=== PATIENT | female | born 2000 | race Caucasian/White ===

== ENCOUNTER 2025-10-21 10:51 | Emergency (ER) | payer SELFPAY ==
[~2025-10-21] VITALS: Ht 167.6 cm; Wt 68.2 kg
[2025-10-21 11:17] LABS: PLATELET COUNT (AUTO) 260 K/uL (150-450); RED BLOOD CELL COUNT(AUTO) 4.71 MIL/uL (4.00-5.20); RED CELL DISTRIBUTION WIDTH 13.2 % (11.5-14.5); WHITE BLOOD COUNT (AUTO) 8.8 K/uL (4.5-11.0)
[2025-10-21 11:23] LABS: CALCIUM, TOTAL 9.7 mg/dL (8.8-10.5); CREATININE 0.55 mg/dL (0.60-1.30); GLOMERULAR FILTR. RATE CALC > 60 mL/min (>60); GLUCOSE,RANDOM 91 mg/dL (70-110); SODIUM SERUM 142 mmol/L (136-145); UREA NITROGEN, BLOOD 8 mg/dL (7-18)
[2025-10-21 11:37] LABS: ALCOHOL, BLOOD (SERUM) < 3 mg/dL (0-10)
[2025-10-21 11:44] LABS: ASPARTATE AMINOTRANSFERASE 19 U/L (15-37); HCG,QUANTITATIVE < 1 mIU/mL (0-6); TOTAL PROTEIN, SERUM 8.3 g/dL (6.4-8.2)
[2025-10-21 11:52] LABS: APPEARANCE,URINE CLEAR (CLEAR); GLUCOSE, URINE (UA) NEGATIVE (NEGATIVE); LEUKOCYTE ESTERASE ,URINE NEGATIVE (NEGATIVE); NITRATE,URINE NEGATIVE (NEGATIVE); OCCULT BLOOD,URINE NEGATIVE (NEGATIVE); PH,URINE DRUG SCREEN 7.5 (5.0-8.0); SPECIFIC GRAVITIY, URINE 1.022 (1.003-1.030)
[2025-10-21 12:03] LABS: ALCOHOL, URINE DRUG SCREEN NEGATIVE (NEGATIVE); AMPHET/METH SCREEN,URINE NEGATIVE (NEGATIVE); BARBITURATE SCREEN, URINE NEGATIVE (NEGATIVE); CANNABINOID SCREEN,URINE POSITIVE (NEGATIVE); COCAINE SCREEN,URINE POSITIVE (NEGATIVE); METHADONE SCREEN, URINE NEGATIVE (NEGATIVE)
[2025-10-21] MEDS: MAG HYDROX/ALUMINUM HYD/SIMETH ES 30 ML SUSPENSION UDCUP PO ONE (12:26)
[2025-10-21] MEDS: SODIUM CHLORIDE 0.9% 1,000 ML IV ONE (12:26)
[2025-10-21] MEDS: THIAMINE 100 MG/ML 2 ML VIAL IVP ONE (12:26)
[2025-10-21] MEDS: FAMOTIDINE 20 MG/2 ML VIAL IVP ONE (12:26)
[2025-10-21] MEDS: ONDANSETRON HCL 4 MG/2 ML VIAL IVP ONE (12:26)
[2025-10-21] MEDS ORDERED: ONDA-104 PO (13:10)
[2025-10-21 13:36] VITALS: BP 108/58; PULSE 63; RESP 18; TEMP 98.1; O2SAT 99
== END 2025-10-21 13:44 | disposition home or self-care (01) ==
LOC: EMS 10:51
DX: E86.0 Dehydration (principal); R10.13 Epigastric pain; F12.90 Cannabis use, unspecified, uncomplicated; F14.90 Cocaine use, unspecified, uncomplicated; F17.210 Nicotine dependence, cigarettes, uncomplicated; N89.8 Other specified noninflammatory disorders of vagina
CPT/HCPCS: 99284; 96374; 96375; 96361; 80048; 80076; 81003; 83690; 84702; 85025; 36415; 80307; G0480; J3490; J2405; J3411; J7030